=== PATIENT | female | born 1960 | race Caucasian/White ===

== ENCOUNTER 2019-02-22 00:05 | Emergency (ER) | payer MEDICARE, OTHER ==
[2019-02-22] MEDS ORDERED: Ibuprofen 600 MG TAB ONE (00:26)
--- NOTE | 2019-02-22 09:55 | RAD ---
RIGHT WRIST THREE VIEWS: HISTORY: Right wrist injury with pain. COMPARISON: None. FINDINGS: Three views of the right wrist show a lucency on one view, through the scaphoid. This is not appreci ated on other views and may be a vascular channel or a trabeculation in the bone. Fracture cannot be entirely excluded. No other fractures or dislocations are seen. Mild soft tissue swelling is seen. IMPRESSION: Lucency seen on one view only, in the scaphoid. A scaphoid fracture cannot be entirely excluded. Co rrelate with snuffbox tenderness. CODE T POS: [facility]
== END 2019-02-22 00:53 | disposition home or self-care (01) ==
LOC: MADERS 00:05
DX: S63.501A Unspecified sprain of right wrist, initial encounter (principal); E78.5 Hyperlipidemia, unspecified; Z87.891 Personal history of nicotine dependence; Z79.899 Other long term (current) drug therapy; W23.0XXA Caught, crushed, jammed, or pinched between moving objects, initial encounter